=== PATIENT | female | born 1975 | race Caucasian/White ===

== ENCOUNTER → 2024-08-07 09:45 | Outpatient (CLI) | payer OTHER, SELFPAY ==
--- NOTE | 2024-08-07 09:49 | DI.CT.S_ITS ---
PROCEDURE: CT SINUS SCREEN WO CON INDICATIONS: SINUSITIS-CHRONIC,FACIAL PAIN TECHNIQUE: Noncontrast 3.0 mm axial images acquired from the frontal sinuses to the mid- sella, with coronal and sagittal reformats. For radiation dose reduction, the following was used: automated exposure control, adjustment of mA and/or kV according to patient size. COMPARISON: None. FINDINGS: Image quality: Excellent. Maxillary Sinuses: No bony remodeling or destruction. Mild mucosal thickening can be seen within the inferior left maxillary sinus. Ethmoid Air Cells: No bony remodeling or destruction. Sinuses are clear. Sphenoid Sinuses: No bony remodeling or destruction. Sinuses are clear. Frontal Sinuses: No bony remodeling or destruction. Sinuses are clear. Ostiomeatal Complexes: The ostiomeatal complexes are patent, yet they are constitutionally narrowed, with bilateral Kings cells. Miscellaneous: Visualized intra-orbital contents are normal. There is a left- sided odalys bullosa. There is mild rightward nasal septal deviation. IMPRESSION: Focal mild mucosal thickening can be seen within the inferior left maxillary sinus. The ostiomeatal complexes are patent, yet they are constitutionally narrowed, with bilateral Kings cells. Dictated by: Crow Stevens M.D. on 08/07/2024 at 13:29 Approved by: Crow Stevens M.D. on 08/07/2024 at 13:30
== END ==
LOC: CT 09:48
PROVIDERS: PCP Nurse Practitioner Family; Referring Provider Otolaryngology; Visit Provider Otolaryngology
DX: J32.4 Chronic pansinusitis (principal); R51.9 Headache, unspecified
CPT/HCPCS: 70486